=== PATIENT | female | born 1985 | race Caucasian/White ===

== ENCOUNTER 2017-12-11 13:51 | Inpatient (IN) | payer BC ==
[2017-12-11] VITALS (15 sets, daily range): BP systolic 120–148; BP diastolic 63–88; PULSE 93–127; TEMP 97.8–98.4
[~2017-12-11] VITALS: Ht 167.6 cm; Wt 90.0 kg
[~2017-12-11 13:51] MED LIST: MOTRIN 800800 MG/TAB PO; PERCOCET 325 MG1 TA2 PO; PRENATAL1 TA7 PO; TIROSINT150 MC1 PO
[2017-12-11 16:26] LABS: BASO % 0.2 % (0.0-2.0); EOS # 0.1 (0.0-0.7); EOS % 1.1 % (0-4.0); GRAN # 7.9 (1.4-6.5); GRAN % 76.8 % (42.2-75.2); HEMOGLOBIN 12.7 g/dl (12.5-16.0); LYMPH # 1.5 (1.2-3.4); LYMPH % 14.8 % (20.0-51.0); MEAN CELL VOLUME 89 fl (80.0-100.0); MEAN CORPUSCULAR HEMOGLOBIN 31 pg (27.0-31.0); MEAN CORPUSCULAR HGB CONC 34 g/dl (33.0-37.0); MEAN PLATELET VOLUME 10.9 fl (7.4-10.4); MONO # 0.6 (0.1-0.6); MONO % 5.8 % (1.7-9.3); PLATELET COUNT 196 K/mm3 (130-400); RED BLOOD COUNT 4.15 M/mm3 (4.10-5.30); REDCELL DISTRIBUTION WIDTH-CV 13.5 % (11.5-14.5)
[2017-12-11 16:27] LABS: HEMATOCRIT 36.9 % (37.0-47.0)
[2017-12-12 02:15] VITALS: BP 104/64; PULSE 92; TEMP 98.2
[2017-12-12 07:45] VITALS: BP 111/71; PULSE 93; TEMP 98.2
[2017-12-12 11:25] VITALS: BP 120/69; PULSE 91; TEMP 98.2
[2017-12-12 17:30] VITALS: BP 119/69; PULSE 89; TEMP 97.9
[2017-12-12 19:00] VITALS: BP 130/85; PULSE 92; TEMP 98.1
[2017-12-13 05:05] VITALS: BP 125/67; PULSE 97; TEMP 98.1
[2017-12-13 07:15] VITALS: BP 116/77; PULSE 90; TEMP 97.9
[2017-12-13] MEDS ORDERED: IBU600 MG PO (09:28)
== END 2017-12-13 14:00 | disposition home or self-care (01) | DRG 775 ==
LOC: LDRO 13:51 → OB 14:31 → LDR 15:04 → OB 18:00
PROVIDERS: Obstetrics & Gynecology
PROC: 10E0XZZ Delivery of Products of Conception, External Approach (ICD-10-PCS; principal; 2017-12-11)
PROC: 0KQM0ZZ Repair Perineum Muscle, Open Approach (ICD-10-PCS; 2017-12-11)
DX: O48.0 Post-term pregnancy (principal); O70.1 Second degree perineal laceration during delivery; O99.284 Endocrine, nutritional and metabolic diseases complicating childbirth; E03.9 Hypothyroidism, unspecified; Z3A.40 40 weeks gestation of pregnancy; Z37.0 Single live birth
CPT/HCPCS: J2590

== ENCOUNTER → 2018-02-28 | Outpatient (CLI) | payer BC ==
[~2018-02-28] MED LIST changes: +IBU600 MG PO
== END ==
LOC: COL.RAD 09:45
DX: E89.0 Postprocedural hypothyroidism (principal); E04.1 Nontoxic single thyroid nodule; Z98.890 Other specified postprocedural states

== ENCOUNTER 2020-05-02 14:55 | Inpatient (IN) | payer BC ==
[2020-05-02] VITALS (19 sets, daily range): BP systolic 111–154; BP diastolic 63–82; PULSE 101–139; TEMP 97.3–98.2
[~2020-05-02] VITALS: Ht 170.2 cm; Wt 93.6 kg
--- NOTE | 2020-05-02 15:17 | NUR ---
Patient ambulatory to unit accompanied by spouse with complaint that since noon she has been having regular contractions. Patient breathing controlled through contractions. Denies any leaking of fluid or vaginal bleeding and states baby has been active. FHR and contraction monitors placed and explained. O2sat placed and tracing maternal heart rate. Assessment and SVE completed. Dr. Traylor called and orders received.
--- NOTE | 2020-05-02 16:05 | NUR ---
SVE-2-2 1613: Patient off monitor to ambulate. 1644: Patient back on monitor and standing at edge of bed. 1705: SVE-[address] Traylor updated and admission orders given. 1720: Patient sitting on edge of bed and maternal heartrate tracing, monitor adjusted. 1752: Patient continues to stand at edge of bed and then sits and difficulty tracing FHR, monitor adjusted. Patient on birthing ball.
[2020-05-02 17:34] LABS: BASO % 0.2 % (0.0-2.0); EOS # 0.1 (0.0-0.7); EOS % 0.5 % (0-4.0); GRAN # 10.5 (1.4-6.5); GRAN % 80.6 % (42.2-75.2); HEMATOCRIT 37.9 % (37.0-47.0); HEMOGLOBIN 12.9 g/dl (12.5-16.0); LYMPH # 1.5 (1.2-3.4); LYMPH % 11.2 % (20.0-51.0); MEAN CELL VOLUME 88 fl (80.0-100.0); MEAN CORPUSCULAR HEMOGLOBIN 30 pg (27.0-31.0); MEAN CORPUSCULAR HGB CONC 34 g/dl (33.0-37.0); MEAN PLATELET VOLUME 10.6 fl (7.4-10.4); MONO # 0.8 (0.1-0.6); MONO % 6.4 % (1.7-9.3); PLATELET COUNT 172 K/mm3 (130-400); RED BLOOD COUNT 4.33 M/mm3 (4.10-5.30); REDCELL DISTRIBUTION WIDTH-CV 12.9 % (11.5-14.5)
--- NOTE | 2020-05-02 18:25 | NUR ---
1817- Pt. requesting to use restroom. RN to bedside, disconnected monitors and helped pt. to the bathroom. 1819- Dr. Traylor to bedside to break water. 820- Pt. back in ebd and EFM and TOCO on and tracing. Dr. Traylor SVE /-2. 1821- AROM with small amount of clear fluid noted. Mom repositioned to , call light within reach.
--- NOTE | 2020-05-02 19:30 | NUR ---
1852- Pt requesting to ambulate in the room. RN to bedside to disconnect monitors. Patient at bedside ambulating during this time. Call light within reach.
--- NOTE | 2020-05-02 20:00 | NUR ---
1956- RN to bedside because FHR lost and EFM noted to be tracing maternal HR. Readjusted and FHR tracing. Maternal O2 monitor remains on. RN remains at bedside to adjust monitors and help make patient comfortable.
--- NOTE | 2020-05-02 20:30 | NUR ---
2026- RN to bedside. Temperature taken orally and recorded at 97.3, vitals taken and within normal limits. RN helped mom to the bed for SVE. 2028- SVE 3-4/-2. EFM and TOCO taken off and pt helped into hot tub. Discussed plan and policy for hot tub and vitals along with dopplering and when we have to get out and put baby back on the monitor. Pt verbalized understanding.
--- NOTE | 2020-05-02 21:00 | NUR ---
2100- RN to hot tub to dobbler and check temperature of mom and water. Water temperature noted to be 98.8. Maternal temperature noted to be 97.7 orally and FHR doppler noted to be 145.
--- NOTE | 2020-05-02 21:30 | NUR ---
2129- RN to hot tub for doppler and temperatures. Maternal temperature noted to be 97.3 orally, water temperature noted to be 98.5 and FHR doppler noted to be 145. RN assisted mom out of the hot tub to go back to the room to get EFM and TOCO back on for tracing. 2137- EFM and TOCO on and tracing. RN remains at bedside to readjust and get steady tracing. Call light within reach. Plan for the evening discussed.
--- NOTE | 2020-05-02 23:15 | NUR ---
2255- RN TO BEDSIDE TO REPOSITION PT. 2255- PT. REPOSITIONED TO SHAMIR POSE. 2302- EFM TRACING MATERNAL. RN TO BEDSIDE ADJUSTING EFM TO TRACE. 2305- EFM TRACING FHT AND NOTED TO BE 145-150. FHT BASELINE INDETERMINATE AT THIS TIME. RN REMAINS AT BEDSIDE 2314- REPOSITIONED TO WR AND EFM AND TOCO READJUSTED AND TRACING.
[2020-05-03] VITALS (21 sets, daily range): BP systolic 101–165; BP diastolic 57–84; PULSE 81–133; TEMP 97.5–98.2
--- NOTE | 2020-05-03 02:25 | NUR ---
0135- RN at bedside, pt feeling "pushy" and moaning through contractions. SVE 9100/-2. Charge nurse Kelsey Neely, RN called to check behind and confirmed. Provider notified and verbalized she was on her way. Pt and room prepped for delivery. 0145- Pitocin turned off. 0150- Provider to bedside, prepped for delivery. Provider SVE complete. Pt. begins pushing when contractions start. 0154- Provider straight cathed pt. and yellow clear urine return was noted. 0202- of viable male infant. Infant placed to mothers abdomen and nursery nurse assumes care at this time. 0218- of placenta. Fundus massaged to firm by Nurse. Pitocin turned on at 333ml/hr per protocol. Perineum intact, EBL 150 per provider. Pt. and room cleaned up and put back together. Perineum cleaned with new pad and ice pack to perineum. 0225- Recovery started, vitals taken.
--- NOTE | 2020-05-03 12:33 | NUR ---
Concierge Manager stopped by and offered congrats while spouse was in room.
[2020-05-04 07:15] VITALS: BP 117/77; PULSE 90; TEMP 97.6
[2020-05-04] MEDS ORDERED: IBU800 M1 PO (10:15)
== END 2020-05-04 11:45 | disposition home or self-care (01) | DRG 807 ==
LOC: LDRO 14:55 → LDR 15:00 → OB 05-03 04:35
PROVIDERS: ADMIT Student in an Organized Health Care Education/Training Program
PROC: 10E0XZZ Delivery of Products of Conception, External Approach (ICD-10-PCS; principal; 2020-05-03)
DX: O99.284 Endocrine, nutritional and metabolic diseases complicating childbirth (principal); Z37.0 Single live birth; E03.9 Hypothyroidism, unspecified; O34.83 Maternal care for other abnormalities of pelvic organs, third trimester; N83.201 Unspecified ovarian cyst, right side; O71.4 Obstetric high vaginal laceration alone; Z3A.39 39 weeks gestation of pregnancy
CPT/HCPCS: J2590; J7120